=== PATIENT | male | born 1965 | race Caucasian/White ===

== ENCOUNTER 2022-04-17 19:37 | Emergency (ER) | payer OTHER, SELFPAY ==
[2022-04-17 19:38] VITALS: BP 150/83; PULSE 88; RESP 16; TEMP 36.3; O2SAT 96; BMI 24.7
[2022-04-17 19:58] LABS: Mucous, Urine 0 SEEN /hpf (<or=2+); Squamous Epithelial Cells - UA 0 SEEN /hpf (0-5); White Blood Cells 0 SEEN /hpf (0-5)
[2022-04-17 20:00] LABS: Absolute Lymphocyte Count 0.97 X10^3/uL (0.83-4.51); Absolute Neutrophil Count 3.5 X10^3/uL (2.0-7.7); Basophil# 0.02 X10^3/uL; Basophil% 0.4 % (0-1); Eosinophil# 0.16 X10^3/uL; Eosinophils% 3.2 % (0-5); Hematocrit 40.9 % (40-54); Hemoglobin 13.5 g/dL (13.0-16.5); Lymphocyte # 0.97 X10^3/ul (0.83-4.51); Lymphocyte % 19.2 % (19-41); Mean Corpuscular Hgb 30.9 pg (27.0-32.0); Mean Corpuscular Volume 93.6 fL (80-94); Mean Platelet Vol. 9.5 fl (6.2-12.0); Monocyte# 0.41 X10^3/uL; Monocyte% 8.1 % (0-10); NRBC Flagged by Analyzer 0 % (0-5); Neutrophil # 3.48 X10^3/uL (2.7-7.7); Neutrophil % 68.9 % (47-70); Platelet Count 227 K/mm3 (150-450); RBC Distribution Width CV 13.1 % (11.6-14.6); RBC Distribution Width SD 44.6 fl (35.1-43.9); Red Blood Count 4.37 M/mm3 (4.6-6.2); White Blood Count 5.1 K/mm3 (4.4-11.0)
[2022-04-17 20:11] LABS: Anion Gap 5 (5-15); BUN 25 mg/dL (7-18); BUN/Creat Ratio 22.1 RATIO (10-20); Calcium,Total 8.8 mg/dL (8.5-10.1); Chloride 108 mmol/L (98-107); Creatinine, Serum 1.13 mg/dL (0.70-1.30); EST Glomerular Filtration Rate 71 mL/min (>60); Est Glom Filt Rate - Afr Amer 85 mL/min (>60); Estimated Creatinine Clearance 72.68 ml/min; Glucose 160 mg/dL (74-106); Sodium Level 141 mmol/L (136-145)
[2022-04-17 20:17] LABS: Color, Urine Yellow (Yellow); Glucose, Dipstick Normal (Normal); Ketone-Dipstick 5 mg/dl (Negative); Leukocyte Esterase-Dipstick Negative /ul (Negative); Nitrite-Dipstick Negative (Negative); Occult Blood-Urine Negative /ul (Negative); Protein-Dipstick 30 mg/dl (Negative); Urine Bilirubin Dipstick Negative (Negative); Urine Clarity Clear (Clear); Urine Urobilinogen 1 mg/dl (Normal)
[2022-04-17 20:34] LABS: Bacteria RARE /hpf (None Seen); Red Blood Cells-Urine 0-5 SEEN /hpf (0-5)
--- NOTE | 2022-04-17 22:19 | ED.VIS.GI ---
HPI HPI - GI History of Present Illness Chief Complaint: Abd Pain Narrative Narrative: 57-year-old male presenting with abdominal pain. He states it was intermittent about 2 weeks ago and this week it has been more constant. He describes it as the bilateral lower quadrants. He states he is not having nausea or vomiting. He is making normal urine and stool. No fevers or chills. He states he thinks he has a history of a twisted bowel. He had surgery by Dr. Billings who told him it was not twisted. He states ever since that time he has had a defect in the left lower abdominal wall. 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 PFSH PFSH Medical History no medical history Home Medications apixaban 5 mg tablet (Eliquis) 5 mg PO BID 04/17/22 [History Last Taken Unknown] escitalopram oxalate 10 mg tablet 10 mg PO DAILY 04/17/22 [History Last Taken Unknown] lisinopril 10 mg tablet 10 mg PO DAILY 04/17/22 [History Last Taken Unknown] mirtazapine 30 mg tablet 30 mg PO DAILY 04/17/22 [History Last Taken Unknown] pantoprazole 40 mg tablet,delayed release 40 mg PO DAILY 04/17/22 [History Last Taken Unknown] Allergy/AdvReac Type Severity Reaction Status Date / Time No Known Allergies Allergy Verified 04/17/22 19:39 Family History no significant family his Surgical History no surgical history Social History Smoking Status: Never smoker [facility] ED Constitutional Constitutional ED: Denies chills or fever(s) ENT ENT ED: Denies rhinorrhea Cardiovascular Cardiovascular: Denies chest pain or palpitations Respiratory/Chest Respiratory/Chest: Denies cough or dyspnea Gastrointestinal Gastrointestinal: Reports abdominal pain; Denies constipation, diarrhea, melena, nausea or vomiting Genitourinary Genitourinary ED: Denies dysuria Musculoskeletal Musculoskeletal: Denies arthralgias or back pain Integumentary Denies abscess Neurologic Neurologic: Denies headache(s) or paresthesias Psychiatric Psychiatric: Denies anxiety or depression EXAM Physical Exam Const Vital Signs: 04/17/22 19:38 Temperature 97.4 F L Temperature Source Temporal Pulse Rate 88 Respiratory Rate 16 Blood Pressure 150/83 H Blood Pressure Mean 105 Pulse Ox 96 Oxygen Delivery Method Room Air Positive well nourished General Appearance ED: NAD; Negative for pallor HEENT Reports TM's clear and moist mucous membranes Tympanic Membrane ED: Yes TM's clear Eyes PERRL and EOMs intact bilaterally Resp normal respiratory effort and clear to auscultation bilaterally Cardio regular rate and regular rhythm GI Palpation: tender periumbilical Back/Spine no CVA tenderness Neuro CN's II-XII intact bilaterally Sensorium / Orientation: alert, oriented to person, oriented to place and oriented to time Psych mental status grossly normal Skin no wounds General Skin Exam: Negative for jaundice or pallor MDM MDM MDM Narrative Medical decision making narrative: Patient presenting with lower abdominal pain bilaterally. He states he is having bowel movements. He is not having diarrhea. No fever or chills. No nausea or vomiting. He states the pain was initially intermittent and then the last week its been more constant. Patient denies black or bloody stools. Patient declines analgesia in the ER. Blood work is obtained and his CBC shows a normal white blood cell count 5.1. Hemoglobin hematocrit are stable. Platelets are normal. Renal function electrolytes are normal. Urinalysis negative for infection. Patient does have some tenderness around the periumbilical region and I did obtain a CT of the abdomen pelvis. This is negative for acute findings other than consistent with gastroenteritis. Patient denies any nausea, vomiting, diarrhea. Impression: 1. Abdominal pain Lab Data Attestation: I reviewed the patient's lab results. Labs: Laboratory Results - last 24 hr 04/17/22 04/17/22 04/17/22 19:45 19:45 19:50 WBC 5.1 RBC 4.37 L Hgb 13.5 Hct 40.9 MCV 93.6 MCH 30.9 MCHC 33.0 RDW Std Deviation 44.6 H RDW Coeff of Markel 13.1 Plt Count 227 MPV 9.5 Immature Gran % (Auto) 0.200 Neut % (Auto) 68.9 Lymph % (Auto) 19.2 [place] % (Auto) 8.1 Eos % (Auto) 3.2 Baso % (Auto) 0.4 Absolute Neuts (auto) 3.5 Absolute Lymphs (auto) 0.97 Nucleated RBC % 0 Sodium 141 Potassium 4.0 Chloride 108 H Carbon Dioxide 28.0 Anion Gap 5 BUN 25 H Creatinine 1.13 Estim Creat Clear Calc 72.68 Est GFR (MDRD) Af Amer 85 Est GFR (MDRD) Non-Af 71 BUN/Creatinine Ratio 22.1 H Glucose 160 H Calcium 8.8 Urine Color Yellow Urine Clarity Clear Urine pH 6.0 Ur Specific [place] 1.020 Urine Protein 30 H Urine Glucose (UA) Normal Urine Ketones 5 H Urine Occult Blood Negative Urine Nitrite Negative Urine Bilirubin Negative Urine Urobilinogen 1 H Ur Leukocyte Esterase Negative Urine RBC 0-5 SEEN Urine WBC 0 SEEN Ur Squamous Epith Cells 0 SEEN Urine Bacteria RARE Urine Mucus 0 SEEN Radiography Diagnostic Testing: Clinical Impression(s) from Imaging Studies Abdomen/Pelvis CT 04/17/22 22:34 IMPRESSION: 1. Fluid within nondistended loops of small bowel and within stomach without bowel wall thickening or surrounding inflammation can be normal or can be seen with gastroenteritis in the right clinical setting. 2. Multiple ill-defined small hypodensities involving the posterior segment of the right lobe of liver. These are nonspecific/indeterminate and some of which were not seen on the prior study. These can be further investigated with liver MRI, nonemergent. Electronically Signed: Sanya Sanders MD at 23:49 EDT , Discharge Plan Triage Chief Complaint: Abd Pain ED Provider: Quinn Bolton Dx/Rx/DC Orders Instructions: ED Gastroenteritis, Noninfectious Prescriptions: No Action pantoprazole 40 mg tablet,delayed release (DR/EC) 40 mg PO DAILY Label Comments: TAKE 1 TABLET BY MOUTH ONCE DAILY IN THE MORNING mirtazapine 30 mg tablet 30 mg PO DAILY Label Comments: TAKE 1 TABLET BY MOUTH EVERY DAY AT BEDTIME lisinopril 10 mg tablet 10 mg PO DAILY Label Comments: TAKE 1 TABLET BY MOUTH ONCE DAILY escitalopram oxalate 10 mg tablet 10 mg PO DAILY Label Comments: TAKE 1 TABLET BY MOUTH ONCE DAILY Eliquis 5 mg tablet 5 mg PO BID Label Comments: TAKE 1 TABLET BY MOUTH TWICE DAILY Primary Care Provider: Michael Alford Referrals: Michael Alford, [Primary Care Provider] - Disposition Disposition: Home, Self Care
--- NOTE | 2022-04-17 22:34 | CT_ITS ---
EXAM: CT ABDOMEN AND PELVIS WITH INTRAVENOUS CONTRAST CLINICAL INDICATION: abdominal pain TECHNIQUE: Helically acquired images were obtained of the abdomen and pelvis with intravenous contrast. CTDIvol = ( 12.44 ) mGy, DLP = ( 613.45 ) mGycm This CT exam was performed using one or more of the following dose reduction techniques: automated exposure control, adjustment of the mA and/or kV according to patient size, and/or use of iterative reconstruction technique. This report was created using [employer] report generation technology. CONTRAST: IV 100mL Isovue-370 COMPARISON: 07/03/2021 CT FINDINGS: LOWER THORAX: Unremarkable. Lung bases are clear. No cardiomegaly. No significant pericardial effusion. ABDOMEN: LIVER: Multiple ill-defined small hypodensities involving the posterior segment of the right lobe of liver. These are nonspecific/indeterminate and can be further investigated with liver MRI. GALLBLADDER AND BILE DUCTS: Contracted gallbladder. No calcified gallstones. No gallbladder distention or wall edema. No intra- or extrahepatic biliary ductal dilation. PANCREAS: Unremarkable. No focal cystic or solid mass. SPLEEN: Unremarkable. Normal size without focal cystic or solid mass. ADRENALS: Unremarkable. No nodules. KIDNEYS AND URETERS: Unremarkable. Normal renal size and position. No hydronephrosis. STOMACH AND BOWEL: Fluid within nondistended loops of small bowel and within stomach without bowel wall thickening or surrounding inflammation can be normal or can be seen with gastroenteritis in the right clinical setting. No colitis, diverticulitis or bowel obstruction. PELVIS: APPENDIX: No appendicitis. BLADDER: Unremarkable. REPRODUCTIVE: Unremarkable as visualized. No mass. ABDOMEN and PELVIS: INTRAPERITONEAL SPACE: Unremarkable. No ascites or other fluid collection. No free air. BONES/JOINTS: No suspicious lytic or sclerotic lesions of bone. SOFT TISSUES: Unremarkable. No discrete abdominal or pelvic wall hernia. VASCULATURE: Unremarkable. Abdominal aorta is non-dilated. LYMPH NODES: Unremarkable. No enlarged lymph nodes. CT/Abdomen/Pelvis W IV Cont ONLY IMPRESSION: 1. Fluid within nondistended loops of small bowel and within stomach without bowel wall thickening or surrounding inflammation can be normal or can be seen with gastroenteritis in the right clinical setting. 2. Multiple ill-defined small hypodensities involving the posterior segment of the right lobe of liver. These are nonspecific/indeterminate and some of which were not seen on the prior study. These can be further investigated with liver MRI, nonemergent. Electronically Signed: Sanya Sanders MD at 23:49 EDT ,
[2022-04-18 00:10] VITALS: BP 145/80; PULSE 76; RESP 16; O2SAT 98
[2022-04-18] MEDS: Acetaminophen 325 MG Tablet 650 MG PO (00:14)
== END 2022-04-18 00:16 | disposition home or self-care (01) ==
PROVIDERS: Emergency Medicine; Emergency Provider Student in an Organized Health Care Education/Training Program; PCP Family Medicine; Visit Provider Student in an Organized Health Care Education/Training Program
DX: R10.32 Left lower quadrant pain (principal); R10.31 Right lower quadrant pain
CPT/HCPCS: 74177; 80048; 81001; 85025; 99284; Q9967; A4216

== ENCOUNTER → 2022-08-08 | Outpatient (CLI) | payer OTHER, SELFPAY ==
--- NOTE | 2022-08-08 11:29 | NM_ITS ---
CLINICAL: 57-year-old male with history of dysphagia. SEMI-SOLID PHASE 99m Tc SULFUR COLLOID GASTRIC EMPTYING STUDY COMPARISON: None available FINDINGS: The patient was administered 1.1 mCi of 99m Tc sulfur colloid mixed with oatmeal and consumed per os. Image acquisitions in the anterior-posterior projections were obtained for 60 minutes. There is prompt visualization of the stomach. There is no gastroesophageal reflux identified. The T ? emptying was calculated to be 28.14 minutes, (Normal: 12-56 minutes). NM/Gastric Emptying Study IMPRESSION: 1. NORMAL 99m Tc sulfur colloid semi-solid phase (oatmeal) gastric emptying imaging examination. A. There is normal and preserved semi-solid phase gastric emptying compared to normal controls. (Ish et al, J Nucl Med Tech 38: 186, 2010). Electronically Signed: Lalit Quiles, at 22:53 EST ,
== END | disposition home or self-care (01) ==
LOC: NM 11:27
PROVIDERS: PCP Family Medicine; Referring Provider Internal Medicine Gastroenterology; Visit Provider Internal Medicine Gastroenterology
DX: R13.10 Dysphagia, unspecified (principal); R14.0 Abdominal distension (gaseous); R10.9 Unspecified abdominal pain; K59.00 Constipation, unspecified
CPT/HCPCS: 78264; A9541

== ENCOUNTER → 2022-08-15 | Outpatient (CLI) | payer SELFPAY, OTHER ==
--- NOTE | 2022-08-15 07:59 | MRI_ITS ---
STUDY: MR MRCP WITHOUT CONTRAST REASON FOR EXAM: Male, 57 years old. dilated pancreatic duct and abdominal pain TECHNIQUE: Standard MRCP technique was utilized. 3-D reconstructions were performed. COMPARISON: None. FINDINGS: Gall Bladder: Contracted. Cystic duct: Normal with no demonstrated fixed filling defect. Intrahepatic ducts: Normal visualized intrahepatic ducts with no demonstrated fixed filling defect, dilation or stricture. Common hepatic duct: Normal with no demonstrated fixed filling defect, dilation or stricture. Common bile duct: Normal with no demonstrated fixed filling defect, dilation or stricture. Pancreatic duct: Normal with no demonstrated fixed filling defect, dilation or stricture. MRI/MRCP Abdomen without Contrast IMPRESSION: Normal MR Cholangiopancreatography (MRCP). Electronically Signed: Lalit Suarez MD at 12:50 EST ,
== END | disposition home or self-care (01) ==
LOC: MRI 07:59
PROVIDERS: PCP Family Medicine; Referring Provider Internal Medicine Gastroenterology; Visit Provider Internal Medicine Gastroenterology
DX: R10.9 Unspecified abdominal pain (principal)
CPT/HCPCS: 74181

== ENCOUNTER 2022-09-13 09:37 | Day surgery (SDC) | payer SELFPAY, OTHER ==
[2022-09-13] MEDS: Lactated Ringers 1,000 ML 15 ML IV (10:31)
[2022-09-13 10:32] VITALS: BP 119/78; PULSE 65; RESP 18; TEMP 37.2; O2SAT 96; BMI 23.9
--- NOTE | 2022-09-13 10:49 | PCM.HP.BLA ---
History and Physical Date of Admission: 09/13/22 ALF EDWARD, is a 57 M who presents to the office today for Initial consult. Alf established with this clinic 07.19.22 with referral from PCP. Constipation is the primary issue for many years. He is dependent on medication to promote BM. Aloe vera and Colace 1 capsule are taken PRN and these are then helpful for approximately three days, but continues to have incomplete BM and loose stools. With this he will also have bloating and upper/lower abdominal pain. In 2011 he experienced severe abdominal pain, presented to [facility] ED where radiology noted a twisted colon; colonoscopy performed and bowel perforated. The next day he had surgery where Alf reports a significant amount of fluid was removed. Then discharged with colostomy from - when this was reversed. Exam Const General: cooperative and comfortable Nutritional Appearance: average body habitus and well nourished HENMT Head: normal to inspection Ears: hearing grossly normal bilaterally Nose: external nose normal Face and sinus: normal facial exam Mouth: oral mucosae normal Throat: posterior oropharynx normal Eyes General: appearance normal, both eyes and all related structures Neck Neck: normal visual inspection Chest Chest palpation & inspection: normal inspection of the chest and normal palpation of entire chest wall Resp Effort & Inspection: normal respiratory effort Auscultation: Bilateral: Clear to Auscultation Cardio Palpation: normal PMI Rate: regular rate Rhythm: regular rhythm GI Inspection: normal to inspection Auscultation: normal bowel sounds Percussion: normal to percussion Palpation: no hepatosplenomegaly Skin General: no rashes or lesions noted Neuro General: patient alert Extrem General: normal to inspection Psych Affect: normal affect Quality Reporting Tobacco Screening ([facility] 138) Smoking Status: Never smoker Assessment and Plan Assessment and Plan (1) Constipation: ?Status:?Chronic ?Plan: New onset constipation in the setting of a sigmoid perforation status post sigmoid reversal suspected primary anastomosis.? The differential diagnosis does include sigmoid stricture, sigmoid colitis associated with diverticulosis.? He should undergo colonoscopy to evaluate. (2) Abdominal pain: ?Status:?Acute ?Plan: Intermittent abdominal pain in the setting of a hiatal hernia and a dilated pancreatic duct seen on CT scan.? Different diagnosis does include pancreatic insufficiency, ampullary lesion obstructing the pancreatic duct.? I do not suspect he has any stone disease.? Also in the differential diagnosis would be gastroparesis, gastritis or duodenitis secondary to age pylori.? She is undergoing upper endoscopy to evaluate (3) Bloating: ?Status:?Acute ?Plan: Positive bloating postprandial which could be associated with bowel acid reflux into the stomach, tightening pyloric sphincter for gastroparesis.? We will get a gastric emptying study to evaluate his upper GI tract for digestion (4) Dysphagia: ?Status:?Acute ?Plan: Intermittent esophageal dysphagia status post G-tube placement with irritation hypopharynx at the level of the cricopharyngeus status post endoscopy.? He is on PPI therapy.? Patient for eosinophilic esophagitis, esophageal stricture, esophageal diverticulum or PPI nonresponsive reflux disease. I have examined the patient and the H&P has been reviewed. There are no clinical changes since date of exam.
--- NOTE | 2022-09-13 11:00 | COLBX_PTH ---
PATIENT: ALF EDWARD JUNIOR LOC: EN U#:[id number] AGE/SX: 57/M ROOM: RE09/13/[address]: Dr. Chavez Barrett DO : 1965 BED: DIS: 09/13/2022 SPEC #: [id number] RECD: 09/13/22 12:42 STATUS: GERA AGUSTIN #: [id number] NATALIE: 09/13/22 11:[address]: Chavez Barrett DEPT: SURGICAL PATHOLOGY RECD BY: Eduin Pedersen ENTERED: 09/13/22 13:29 SP TYPE: COLON BX OTHR DR: Dr. Michael Alford DO Tissues: A - Duodenum, NOS B - Esophagus, NOS C - COLON BIOPSY Procedures: Special Stain Group II Surgery Specimen Level IV Alcian Blue/PAS (control) HEADER OPERATION: Colonoscopy, EGD ([facility]) with biopsies PRE-OP DIAGNOSIS: Constipation, abdominal pain, bloating, dysphagia TISSUE SUBMITTED: A ? Duodenum biopsy, B ? Distal esophagus biopsy, C ? Random colon biopsies MICROSCOPIC DIAGNOSIS A. Duodenum, biopsy: No pathologic change. B. Distal esophagus, biopsy: Fragments of gastric mucosa with chronic inflammation. No evidence of goblet cell metaplasia. See comment. C. Colon, random biopsy: Melanosis coli. AM:amaury 09/14/2022 COMMENT B. Alcian blue/PAS stain with matched control supports the above diagnosis. MICROSCOPIC DESCRIPTION Slides are reviewed. GROSS DESCRIPTION A - Received in fixative is one container labeled with the patient's name and designated duodenum biopsy. The specimen consists of multiple irregular fragments of light armijo soft tissue that in aggregate measure 0.6 x 0.3 x 0.1 cm. The specimen is totally submitted in one cassette. B - Received in fixative is one container labeled with the patient's name and designated distal esophagus biopsy. The specimen consists of two irregular fragments of light armijo soft tissue that in aggregate measure 0.6 x 0.3 x 0.1 cm. The specimen is totally submitted in one cassette. C - Received in fixative is one container labeled with the patient's name and designated random colon biopsy. The specimen consists of multiple irregular fragments of light armijo soft tissue that in aggregate measure 1 x 0.3 x 0.1 cm. The specimen is totally submitted in one cassette. / ALEX:amaury 09/13/2022 TC:3 CPT: 25189 x3, 38435
[2022-09-13 12:08] VITALS: BP 119/78; BP 90/68; PULSE 70; RESP 18; TEMP 36.4; O2SAT 98
--- NOTE | 2022-09-13 12:08 | OP.EGD_ITS ---
Patient Name: Jonatan Barr Procedure Date: 09/13/2022 10:47 AM Date of : 1965 Age: 57 Procedure: Upper GI endoscopy Indications: Epigastric abdominal pain, Functional Dyspepsia Providers: Chavez Barrett DO Medicines: Monitored Anesthesia Care Patient Profile: This is a 57 year old male. Refer to note in patient chart for documentation of history and physical. Patient has symptoms of chronic global abdominal pain. Complications: No immediate complications. Procedure: Pre-Anesthesia Assessment: - Prior to the procedure, a History and Physical was performed, and patient medications and allergies were reviewed. The risks and benefits of the procedure and the sedation options and risks were discussed with the patient. All questions were answered and informed consent was obtained. Patient identification and proposed procedure were verified by the physician. Mental Status Examination: normal. Prophylactic Antibiotics: The patient does not require prophylactic antibiotics. Prior Anticoagulants: The patient has taken no previous anticoagulant or antiplatelet agents. ASA Grade Assessment: II - A patient with mild systemic disease. After reviewing the risks and benefits, the patient was deemed in satisfactory condition to undergo the procedure. The anesthesia plan was to use monitored anesthesia care (MAC). Immediately prior to administration of medications, the patient was re-assessed for adequacy to receive sedatives. The heart rate, respiratory rate, oxygen saturations, blood pressure, adequacy of pulmonary ventilation, and response to care were monitored throughout the procedure. The physical status of the patient was re-assessed after the procedure. After obtaining informed consent, the endoscope was passed under direct vision. Throughout the procedure, the patient's blood pressure, pulse, and oxygen saturations were monitored continuously. The pediatric colonoscope was introduced through the mouth, and advanced to the second part of duodenum. The upper GI endoscopy was accomplished without difficulty. The patient tolerated the procedure well. Scope In: 11:44:49 AM Scope Out: 11:48:34 AM Total Procedure Duration Time 0 hours 3 minutes 45 seconds Findings: The Z-line was irregular and was found 37 cm from the incisors. Biopsies were taken with a cold forceps for histology. Verification of patient identification for the specimen was done. Estimated blood loss was minimal. The exam of the esophagus was otherwise normal. A small hiatal hernia was present. No other significant abnormalities were identified in a careful examination of the stomach. Few non-bleeding superficial duodenal ulcers with no stigmata of bleeding were found in the duodenal bulb. The largest lesion was 6 mm in largest dimension. Biopsies were taken with a cold forceps for histology. Verification of patient identification for the specimen was done. Estimated blood loss was minimal. Impression: - Z-line irregular, 37 cm from the incisors. Biopsied. - Small hiatal hernia. - Multiple non-bleeding duodenal ulcers with no stigmata of bleeding. Biopsied. Recommendation: - Discharge patient to home. - Resume previous diet. - Continue present medications. - Await pathology results. - Repeat upper endoscopy in 6 months for surveillance based on pathology results. Procedure Code(s): --- Professional --- 59479, Esophagogastroduodenoscopy, flexible, transoral; with biopsy, single or multiple CPT copyright 2017 [employer]. All rights reserved. The codes documented in this report are preliminary and upon cuff matcher review may be revised to meet current compliance requirements. Chavez Barrett DO 09/13/2022 12:07:35 PM This report has been signed electronically. Number of Addenda: 0 Note Initiated On: 09/13/2022 10:47 AM
--- NOTE | 2022-09-13 12:08 | OP.CCLET_ITS ---
09/13/2022 Michael Alford Re : Upper GI endoscopy procedure for Jonatan Barr [place] This procedure was performed on Tuesday, September 13, 2022. My impressions and recommendations are as follows: Impressions : - Z-line irregular, 37 cm from the incisors. Biopsied. - Small hiatal hernia. - Multiple non-bleeding duodenal ulcers with no stigmata of bleeding. Biopsied. Recommendations : - Discharge patient to home. - Resume previous diet. - Continue present medications. - Await pathology results. - Repeat upper endoscopy in 6 months for surveillance based on pathology results. My findings are described in the full procedure note, which is enclosed. If I can be of further assistance, please feel free to contact me at . Sincerely, Chavez Friend, 09/13/2022 12:07:35 PM This report has been signed electronically.
[2022-09-13 12:10] VITALS: BP 119/78; BP 90/63; PULSE 72; RESP 18; O2SAT 96
--- NOTE | 2022-09-13 12:12 | OP.CCLET_ITS ---
09/13/2022 Michael Alford Re : Colonoscopy procedure for Jonatan Barr [place] This procedure was performed on Tuesday, September 13, 2022. My impressions and recommendations are as follows: Impressions : - Melanosis in the colon. Biopsied. - Patent end-to-end colo-colonic anastomosis. - The examined portion of the ileum was normal. Recommendations : - Discharge patient to home. - Resume previous diet. - Continue present medications. - Await pathology results. - Repeat colonoscopy in 5 years for surveillance. My findings are described in the full procedure note, which is enclosed. If I can be of further assistance, please feel free to contact me at . Sincerely, Chavez Barrett, 09/13/2022 12:11:43 PM This report has been signed electronically.
--- NOTE | 2022-09-13 12:12 | OP.COLON_ITS ---
Patient Name: Jonatan Barr Procedure Date: 09/13/2022 11:48 AM Date of : 1965 Age: 57 Procedure: Colonoscopy Indications: Abdominal pain, Follow-up of colonic perforation Providers: Chavez Barrett DO Medicines: Monitored Anesthesia Care Patient Profile: This is a 57 year old male. Refer to note in patient chart for documentation of history and physical. Patient has symptoms of chronic global abdominal pain. Last Colonoscopy: 10 years ago. Complications: No immediate complications. Procedure: Pre-Anesthesia Assessment: - Prior to the procedure, a History and Physical was performed, and patient medications and allergies were reviewed. The risks and benefits of the procedure and the sedation options and risks were discussed with the patient. All questions were answered and informed consent was obtained. Patient identification and proposed procedure were verified by the physician. Mental Status Examination: normal. Prophylactic Antibiotics: The patient does not require prophylactic antibiotics. Prior Anticoagulants: The patient has taken no previous anticoagulant or antiplatelet agents. ASA Grade Assessment: II - A patient with mild systemic disease. After reviewing the risks and benefits, the patient was deemed in satisfactory condition to undergo the procedure. The anesthesia plan was to use monitored anesthesia care (MAC). Immediately prior to administration of medications, the patient was re-assessed for adequacy to receive sedatives. The heart rate, respiratory rate, oxygen saturations, blood pressure, adequacy of pulmonary ventilation, and response to care were monitored throughout the procedure. The physical status of the patient was re-assessed after the procedure. After I obtained informed consent, the scope was passed under direct vision. Throughout the procedure, the patient's blood pressure, pulse, and oxygen saturations were monitored continuously. The pediatric colonoscope was introduced through the anus and advanced to the terminal ileum. The colonoscopy was performed without difficulty. The patient tolerated the procedure well. The quality of the bowel preparation was good. Scope In: 11:51:05 AM Scope Out: 12:02:08 PM Total Procedure Duration Time 0 hours 11 minutes 3 seconds Findings: The perianal and digital rectal examinations were normal. A diffuse area of severe melanosis was found in the entire colon. Biopsies were taken with a cold forceps for histology. Verification of patient identification for the specimen was done. Estimated blood loss was minimal. There was evidence of a prior end-to-end colo-colonic anastomosis in the sigmoid colon. This was patent. The terminal ileum appeared normal. Impression: - Melanosis in the colon. Biopsied. - Patent end-to-end colo-colonic anastomosis. - The examined portion of the ileum was normal. Recommendation: - Discharge patient to home. - Resume previous diet. - Continue present medications. - Await pathology results. - Repeat colonoscopy in 5 years for surveillance. Procedure Code(s): --- Professional --- 32351, Colonoscopy, flexible; with biopsy, single or multiple CPT copyright 2017 [employer]. All rights reserved. The codes documented in this report are preliminary and upon radio adjuster review may be revised to meet current compliance requirements. Chavez Barrett DO 09/13/2022 12:11:43 PM This report has been signed electronically. Number of Addenda: 0 Note Initiated On: 09/13/2022 11:48 AM
[2022-09-13 12:15] VITALS: BP 119/78; BP 98/76; PULSE 70; RESP 18; O2SAT 96
[2022-09-13 12:26] VITALS: BP 116/80; BP 119/78; PULSE 64; RESP 18; TEMP 36.5; O2SAT 96
[2022-09-13 13:03] VITALS: BP 119/78
== END 2022-09-13 13:11 | disposition home or self-care (01) ==
LOC: EN 09:38 → AC 09:40
PROVIDERS: PCP Family Medicine; Referring Provider Family Medicine; Visit Provider Internal Medicine Gastroenterology
PROC: 0DJD8ZZ Inspection of Lower Intestinal Tract, Via Natural or Artificial Opening Endoscopic (ICD-10-PCS; CPT 45378; principal; 2022-09-13 10:55)
DX: K44.9 Diaphragmatic hernia without obstruction or gangrene (principal); K26.9 Duodenal ulcer, unspecified as acute or chronic, without hemorrhage or perforation; K63.89 Other specified diseases of intestine; I10 Essential (primary) hypertension; Z79.899 Other long term (current) drug therapy
CPT/HCPCS: 43239; 45380; 88305; 88313; J7120; J2405

== ENCOUNTER 2022-12-24 06:16 | Emergency (ER) | payer OTHER, SELFPAY ==
[2022-12-24 06:17] VITALS: BP 138/92; PULSE 84; RESP 16; TEMP 36.2; O2SAT 97; BMI 25.2
--- NOTE | 2022-12-24 07:22 | EX.ED.DYSGE1 ---
HPI History of Present Illness Chief Complaint: Allergic Reaction Informant: patient Narrative Narrative: Patient is a 57-year-old presenting with lip swelling. Patient states that started noon yesterday. He took Benadryl last night with no improvement. [place] that his face was little bit more swollen today so he came to the emergency room. Patient states he had 3 doses of Augmentin. He states it was prescribed to him because he is been having some chest congestion. He states he recently had a chest x-ray which was negative. He notes he is also on lisinopril and Lexapro. His last dose of lisinopril was yesterday morning. He has not had his Lexapro for couple days. Patient denies any hives, difficulty breathing, swelling of his throat or tongue or GI symptoms. Never had a reaction like this before. No other complaints at this time. [facility] Medical History Hypertension Home Medications escitalopram oxalate 10 mg tablet 10 mg PO DAILY 04/17/22 [History Last Taken 09/12/22] lisinopril 10 mg tablet 10 mg PO DAILY 04/17/22 [History Last Taken 09/12/22] pantoprazole 40 mg tablet,delayed release 40 mg PO DAILY 04/17/22 [History Last Taken 09/12/22] amoxicillin 500 mg tablet 500 mg PO BID #10 tabs 10/03/22 [Rx Last Taken Unknown] amoxicillin 875 mg-potassium clavulanate 125 mg tablet 1 tab PO Q12H #14 tabs 12/20/22 [Rx Last Taken Unknown] guaifenesin 600 mg tablet, extended release 12 hr 600 mg PO BID PRN congestion #14 tabs 12/20/22 [Rx Last Taken Unknown] amlodipine 5 mg tablet (Norvasc) 5 mg PO DAILY #30 tabs 12/24/22 [Rx Last Taken Unknown] doxycycline hyclate 100 mg capsule 100 mg PO BID #14 caps 12/24/22 [Rx Last Taken Unknown] prednisone 20 mg tablet 40 mg PO DAILY #8 tabs 12/24/22 [Rx Last Taken Unknown] Allergy/AdvReac Type Severity Reaction Status Date / Time amoxicillin [From Augmentin] Allergy Swelling Verified 12/24/22 06:22 clavulanic acid Allergy Swelling Verified 12/24/22 06:22 [From Augmentin] Surgical History H/O hernia repair Social History Smoking Status: Never smoker ROS ROS ED Constitutional Constitutional ED: Denies chills or fever(s) Eyes Eyes: Denies change in vision ENT ENT ED: Reports other Details: Upper lip swelling ; Denies rhinorrhea or sore throat Cardiovascular Cardiovascular: Denies chest pain Respiratory/Chest Respiratory/Chest: Reports cough; Denies dyspnea Gastrointestinal Gastrointestinal: Denies abdominal pain, diarrhea, nausea or vomiting Musculoskeletal Musculoskeletal: Denies arthralgias or myalgias Integumentary Denies rash Neurologic Neurologic: Denies headache(s) EXAM Physical Exam Const Vital Signs: 12/24/22 06:17 12/24/22 07:42 Temperature 97.2 F L Temperature Source Temporal Pulse Rate 84 71 Respiratory Rate 16 14 Blood Pressure 138/92 H 132/71 H Blood Pressure Mean 107 Pulse Ox 97 97 Oxygen Delivery Method Room Air Positive well nourished and well developed General Appearance ED: well developed and NAD HEENT Reports moist mucous membranes HEENT Narrative: Edema of the upper lip. Normal oropharynx. No edema of the tongue appreciated. Normal phonation. Eyes PERRL and EOMs intact bilaterally Eyes Narrative: No periorbital edema present Neck supple Neck Narrative: No stridor Chest Wall inspection of chest normal and palpation of chest normal Resp normal respiratory effort Resp Narrative: Scattered expiratory wheeze present Cardio regular rate, regular rhythm and no murmurs GI normal to inspection, nondistended, normoactive bowel sounds and non-tender Extremity normal to inspection General Extremety ED: Negative for edema General Extremity: Negative for edema Neuro oriented x3 Sensorium / Orientation: alert Motor Exam: Negative for general weakness Psych mental status grossly normal Skin no rashes or lesions noted Skin Narrative: No urticaria present MDM MDM MDM Narrative Medical decision making narrative: Patient is evaluated for upper lip swelling. Suspect this is angioedema and not anaphylaxis. Its been stable since noon yesterday so do not think he requires extended observation. There is no involvement of the mouth, buccal surfaces or oropharynx. He has no respiratory distress. It is possible that this could be allergic reaction to the antibiotics however I think this is less likely especially given lack of other symptoms such as hives, itching and the steady state of it over the past 16 hours or so. Just to be safe he has put on some prednisone and given Benadryl in the ER as well. Patient is counseled that I do suspect this is angioedema and he can never take an RUTH ANN inhibitor like lisinopril again. He is switched to Norvasc. He is given a prescription for prednisone. He is counseled return precautions. He does have a subtle wheeze which I think is related to his chest congestion and not actually from an allergic reaction. Patient states he has inhaler at home and is encouraged to use it. And a description for doxycycline since I am stopping the Augmentin. His chest x-ray from 12/10/[facility] was reviewed and did not show any infiltrate. He feels that those symptoms are improving. I do not know if he really needs antibiotics and is counseled if his respiratory symptoms are improving he can not fill the prescription. Patient and verbalized agreement understand this plan. Discharged home in stable condition. Discharge Plan Triage Chief Complaint: Allergic Reaction ED Provider: Ariella Ochoa Dx/Rx/DC Orders Clinical Impression: Angioedema, Swelling of upper lip Instructions: ED Angioedema Prescriptions: New prednisone 20 mg tablet 40 mg PO DAILY Qty: 8 0RF amlodipine [Norvasc] 5 mg tablet 5 mg PO DAILY Qty: 30 0RF doxycycline hyclate 100 mg capsule 100 mg PO BID Qty: 14 0RF No Action amoxicillin 500 mg tablet 500 mg PO BID Qty: 10 0RF amoxicillin-pot clavulanate 875-125 mg tablet 1 tab PO Q12H Qty: 14 0RF guaifenesin 600 mg tablet extended release 12hr 600 mg PO BID PRN (Reason: congestion) Qty: 14 0RF pantoprazole 40 mg tablet,delayed release (DR/EC) 40 mg PO DAILY Label Comments: TAKE 1 TABLET BY MOUTH ONCE DAILY IN THE MORNING lisinopril 10 mg tablet 10 mg PO DAILY Label Comments: TAKE 1 TABLET BY MOUTH ONCE DAILY escitalopram oxalate 10 mg tablet 10 mg PO DAILY Label Comments: TAKE 1 TABLET BY MOUTH ONCE DAILY Primary Care Provider: Michael Alford Referrals: Michael Alford, [Primary Care Provider] - Activity Restrictions/Additional Instructions: I suspect allergic reaction or having a something called angioedema. It is caused by lisinopril. Less likely this is a reaction to Augmentin. Just to be on the safe side we will stop the antibiotics and put you on steroids. We will switch her blood pressure medicine to Norvasc. Disposition Disposition: Home, Self Care Discharge Date/Time: 12/24/22 07:43
[2022-12-24] MEDS: DiphenhydrAMINE 25 MG Capsule 50 MG PO (07:39)
[2022-12-24] MEDS: predniSONE 20 MG Tablet 40 MG PO (07:39)
[2022-12-24 07:42] VITALS: BP 132/71; PULSE 71; RESP 14; O2SAT 97
== END 2022-12-24 07:43 | disposition home or self-care (01) ==
PROVIDERS: Emergency Provider Emergency Medicine; PCP Family Medicine; Visit Provider Emergency Medicine
DX: T78.3XXA Angioneurotic edema, initial encounter (principal); X58.XXXA Exposure to other specified factors, initial encounter
CPT/HCPCS: 99283

== ENCOUNTER 2024-11-19 12:10 | Emergency (ER) | payer OTHER, SELFPAY ==
[2024-11-19 12:11] VITALS: BP 124/85; PULSE 52; RESP 16; TEMP 36.3; O2SAT 97; BMI 25.8
--- NOTE | 2024-11-19 14:04 | EKG12_ITS ---
Test Reason : Blood Pressure : */* mmHG Vent. Rate : 49 BPM Atrial Rate : 49 BPM P-R Int : 176 ms QRS Dur : 90 ms QT Int : 440 ms P-R-T Axes : 42 51 43 degrees QTcB Int : 397 ms Sinus bradycardia Early repolarization Otherwise normal ECG Confirmed by KAL DEAL, LESLY ([id number]), editor managing director ADEN MASTERS ([id number]) on 11/24/2024 10:58:04 AM Referred By: ALECIA Confirmed By: LESLY BOWDEN MD
--- NOTE | 2024-11-19 14:05 | EX.ED.DYSGE1 ---
HPI History of Present Illness Chief Complaint: Dizziness Narrative Narrative: 59-year-old male past medical history of hypertension presents with dizziness and vertigo that has had since yesterday evening at around 9:30 PM. This was approximately 17 hours ago. He states he was in the shower and became very vertiginous like the room was spinning. He was nauseated but did not vomit. He denies any chest pain or shortness of breath. No exacerbating or alleviating factors but he states when he lies still it somewhat improves. He states that he had been seen a few weeks ago for headaches, and had outpatient imaging which did not show anything acute like a mass or any bleeding. He presents with continued dizziness which is somewhat worsened by standing. No recent vomiting or diarrhea. [facility] Medical History Hypertension Home Medications ?Medication ?Instructions ?Recorded ?Last Taken ?Type escitalopram oxalate 10 mg tablet 10 mg PO DAILY 04/17/22 09/12/22 History lisinopril 10 mg tablet 10 mg PO DAILY 04/17/22 09/12/22 History pantoprazole 40 mg tablet,delayed 40 mg PO DAILY 04/17/22 09/12/22 History release amoxicillin 500 mg tablet 500 mg PO BID #10 tabs 10/03/22 Unknown Rx amoxicillin 875 mg-potassium 1 tab PO Q12H #14 tabs 12/20/22 Unknown Rx clavulanate 125 mg tablet guaifenesin 600 mg tablet, 600 mg PO BID PRN congestion #14 12/20/22 Unknown Rx extended release 12 hr tabs amlodipine 5 mg tablet (Norvasc) 5 mg PO DAILY #30 tabs 12/24/22 Unknown Rx doxycycline hyclate 100 mg capsule 100 mg PO BID #14 caps 12/24/22 Unknown Rx prednisone 20 mg tablet 40 mg (2 x 20 mg) PO DAILY #8 tabs 12/24/22 Unknown Rx meclizine 25 mg tablet 25 mg PO 4X/DAY PRN PRN Dizziness 11/19/24 Unknown Rx #20 tabs Allergy/AdvReac Type Severity Reaction Status Date / Time amoxicillin (From Augmentin) Allergy Swelling Verified 11/19/24 13:37 clavulanic acid (From Allergy Swelling Verified 11/19/24 13:37 Augmentin) Surgical History H/O hernia repair Social History Smoking Status: Never smoker ROS ROS ED ROS Narrative Review of systems positive for dizziness and nausea. History of headaches. Denies any fevers or chills, no cough, no chest pain or shortness of breath, no leg swelling or other symptoms. EXAM Physical Exam Narrative Exam Narrative: Afebrile. Vital signs noted. Nontoxic-appearing. NIH stroke scale is 0. Cardiovascular examination reveals mild bradycardia. Lungs are clear to auscultation bilaterally. Abdomen is soft nontender without guarding or rebound. Neurological examination is nonfocal and nonlateralizing. Normal [id number]. Const Vital Signs: 11/19/24 12:11 11/19/24 14:11 11/19/24 14:28 Temperature 97.3 F L Temperature Source Temporal Pulse Rate 52 L Pulse Rate [Lying] 48 L Pulse Rate [Sitting (for 1 minute prior to obtaining)] 52 L Respiratory Rate 16 Blood Pressure 124/85 H 128/77 H Blood Pressure [Lying] 141/91 H Blood Pressure [Sitting (for 1 minute prior to obtaining)] 147/82 H Blood Pressure Mean 98 94 Blood Pressure Mean [Lying] 107 Blood Pressure Mean [Sitting (for 1 minute prior to obtaining)] 103 Pulse Ox 97 Oxygen Delivery Method Room Air 11/19/24 16:00 Temperature Temperature Source Pulse Rate 52 L Pulse Rate [Lying] Pulse Rate [Sitting (for 1 minute prior to obtaining)] Respiratory Rate 12 Blood Pressure 144/86 H Blood Pressure [Lying] Blood Pressure [Sitting (for 1 minute prior to obtaining)] Blood Pressure Mean 105 Blood Pressure Mean [Lying] Blood Pressure Mean [Sitting (for 1 minute prior to obtaining)] Pulse Ox Oxygen Delivery Method MDM MDM MDM Narrative Medical decision making narrative: Differential diagnosis includes but not limited to positional vertigo versus dehydration versus other electrolyte imbalance versus posterior stroke. I have low suspicion for stroke or subarachnoid hemorrhage as his symptoms have been ongoing for 17 hours and mildly improving. I do not feel stroke team is indicated and he is outside the window for TNK and he does not have a debilitating deficit. Orthostatics were obtained, but he could not stand for them. This was before administration of meclizine. EKG was obtained and interpreted by myself independently as sinus bradycardia at [address] changes. No STEMI. He does show signs of early repolarization which I think is nonspecific. In review of his laboratory work he has neutropenia at 4.0 where he is the normal or even has had leukocytosis in the past. Hemoglobin 15.5, hematocrit 46.0, platelet count normal at 217. Electrolyte panel shows BUN of 23 and creatinine 0.89. LFTs are grossly unremarkable. I reviewed the radiology report of the CT of the brain and while there is no evidence of an acute hemorrhage, and comments on abnormality of the posterior superior aspect of the skull which could be Paget's disease versus metastatic deposit. However, I do not think this is the cause of the patient's dizziness. He was administered meclizine. He will be ambulated. According to RN, patient was able to ambulate without difficulty. Repeat examination shows him improved. At this point in time, I feel he can be discharged to follow-up with his primary care provider. Regarding his neutropenia and the abnormal skull lesions, he was told to follow-up with his primary care provider and he may need referral to hematology oncology. Return instructions to the emergency department were reviewed. He was written for 20 tablets of meclizine for the next 5 days. I do not feel he requires observation at this time as he has improved. Disposition is discharged home in stable condition. History & Record Review Discussion w/independent historian: Patient Lab Data Attestation: I reviewed the patient's lab results. Labs: Laboratory Results - last 24 hr 11/19/24 14:15 WBC 4.0 L RBC 5.11 Hgb 15.5 Hct 46.0 MCV 90.0 MCH 30.3 MCHC 33.7 RDW Std Deviation 42.5 RDW Coeff of Markel 13.0 Plt Count 217 MPV 9.7 Immature Gran % (Auto) 0.500 Neut % (Auto) 69.9 Lymph % (Auto) 17.8 L Metcalfe % (Auto) 7.5 Eos % (Auto) 3.8 Baso % (Auto) 0.5 Absolute Neuts (auto) 2.8 Absolute Lymphs (auto) 0.71 L Nucleated RBC % 0 Sodium 137 Potassium 4.5 Chloride 102 Carbon Dioxide 24.7 Anion Gap 10 BUN 23 H Creatinine 0.89 Estim Creat Clear Calc 90.00 Est GFR (MDRD) Non-Af 98 BUN/Creatinine Ratio 25.9 H Glucose 99 Calcium 9.2 Total Bilirubin 0.32 AST 36 ALT 18 Alkaline Phosphatase 72 Total Protein 7.4 Albumin 4.3 Globulin 3.2 Albumin/Globulin Ratio 1.3 Radiography Diagnostic Testing: Clinical Impression(s) from Imaging Studies Brain CT 11/19/24 14:43 IMPRESSION: No intracranial abnormality is seen. Abnormal appearance of the posterior superior aspect of the skull as described. This may represent either patch disease or possible metastatic deposit. Clinical correlation recommended. Reading Location: [place] [id number] Discharge Plan Triage Chief Complaint: Dizziness ED Provider: Veto Corona Dx/Rx/DC Orders Clinical Impression: Vertigo, Neutropenia, Abnormal CT scan of head Instructions: Neutropenia, ED Vertigo, Unspecified Prescriptions: New meclizine 25 mg tablet 25 mg PO 4X/DAY PRN PRN (Reason: Dizziness) Qty: 20 0RF No Action amoxicillin 500 mg tablet 500 mg PO BID Qty: 10 0RF amoxicillin-pot clavulanate 875-125 mg tablet 1 tab PO Q12H Qty: 14 0RF guaifenesin 600 mg tablet extended release 12hr 600 mg PO BID PRN (Reason: congestion) Qty: 14 0RF pantoprazole 40 mg tablet,delayed release (DR/EC) 40 mg PO DAILY Patient Comments: TAKE 1 TABLET BY MOUTH ONCE DAILY IN THE MORNING lisinopril 10 mg tablet 10 mg PO DAILY Patient Comments: TAKE 1 TABLET BY MOUTH ONCE DAILY escitalopram oxalate 10 mg tablet 10 mg PO DAILY Patient Comments: TAKE 1 TABLET BY MOUTH ONCE DAILY prednisone 20 mg tablet 40 mg PO DAILY Qty: 8 0RF amlodipine [Norvasc] 5 mg tablet 5 mg PO DAILY Qty: 30 0RF doxycycline hyclate 100 mg capsule 100 mg PO BID Qty: 14 0RF Primary Care Provider: Michael Alford Referrals: Michael Alford DO [Primary Care Provider] - 3-5 Days if not improving Activity Restrictions/Additional Instructions: You have an abnormal CT of your brain. It was regarding your skull. Follow-up with your primary care provider for further evaluation and treatment. You may need referral to hematology/oncology. Additionally, you had a lower white blood cell count today. He will need to have this rechecked in a few weeks. Take medication as directed for dizziness/vertigo. Return with increased dizziness, vomiting, new or worsening symptoms. Print Language: Slovenian Disposition Disposition: Home, Self Care
[2024-11-19 14:11] VITALS: BP 128/77
[2024-11-19 14:22] LABS: Absolute Lymphocyte Count 0.71 X10^3/uL (0.83-4.51); Absolute Neutrophil Count 2.8 X10^3/uL (2.0-7.7); Basophil# 0.02 X10^3/uL; Basophil% 0.5 % (0-1); Eosinophil# 0.15 X10^3/uL; Eosinophils% 3.8 % (0-5); Hemoglobin 15.5 g/dL (13.0-16.5); Lymphocyte # 0.71 X10^3/ul (0.83-4.51); Lymphocyte % 17.8 % (19-41); Mean Corp Hgb Conc 33.7 g/dL (32-36); Mean Corpuscular Hgb 30.3 pg (27.0-32.0); Mean Platelet Vol. 9.7 fl (6.2-12.0); Monocyte% 7.5 % (0-10); NRBC Flagged by Analyzer 0 % (0-5); Neutrophil % 69.9 % (47-70); Platelet Count 217 K/mm3 (150-450); RBC Distribution Width SD 42.5 fl (35.1-43.9); Red Blood Count 5.11 M/mm3 (4.6-6.2)
[2024-11-19 14:28] VITALS: BP 141/91; BP 147/82; PULSE 48; PULSE 52
[2024-11-19] MEDS: 0.9% Normal Saline (1000mL) 1,000 ML 1000 ML IV (14:33)
--- NOTE | 2024-11-19 14:43 | CT_ITS ---
EXAM: BRAIN/HEAD WITHOUT CONTRAST CLINICAL HISTORY: DIZZINESS, VERTIGO COMPARISON: None TECHNIQUE: Multiple axial tomographic images were obtained without intravenous contrast administration. Coronal and sagittal reconstruction was obtained as well. FINDINGS: No intracranial abnormality is seen. Abnormal appearance of the posterior superior aspect of the skull. This may represent possible Paget's disease. A neoplastic process can not be excluded. Clinical correlation recommended. CT/Brain/Head without Contrast IMPRESSION: No intracranial abnormality is seen. Abnormal appearance of the posterior superior aspect of the skull as described. This may represent either patch disease or possible metastatic deposit. Clinical correlation recommended. Reading Location: [facility]
[2024-11-19 14:46] LABS: ALB/GLOB Ratio 1.3 RATIO (0.9-2.4); AST(SGOT) 36 U/L (<=37); Alanine Aminotransfer ALT/SGPT 18 U/L (<=46); Albumin, Serum 4.3 g/dL (3.4-4.8); Alkaline Phosphatase 72 U/L (40-129); Anion Gap 10 (5-15); BUN 23 mg/dL (4-19); BUN/Creat Ratio 25.9 RATIO (10-20); Calcium,Total 9.2 mg/dL (7.6-11.0); Carbon Dioxide 24.7 mmol/L (21.0-32.0); Chloride 102 mmol/L (98-108); Creatinine, Serum 0.89 mg/dL (0.70-1.20); EST Glomerular Filtration Rate 98 (>60); Globulin 3.2 g/dL (2.2-4.2); Glucose 99 mg/dL (70-99); Potassium 4.5 mmol/L (3.3-5.1); Protein, Total 7.4 g/dL (5.9-8.4); Sodium Level 137 mmol/L (133-145); Total Bilirubin 0.32 mg/dL (0.00-1.30)
[2024-11-19] MEDS: Meclizine HCl 25 MG Tablet PO (15:04)
[2024-11-19 16:00] VITALS: BP 144/86; PULSE 52; RESP 12
[2024-11-19 17:00] VITALS: BP 127/81; PULSE 59; RESP 16; TEMP 36.6; O2SAT 100
== END 2024-11-19 17:01 | disposition home or self-care (01) ==
PROVIDERS: Emergency Provider Emergency Medicine; PCP Family Medicine; Visit Provider Emergency Medicine
DX: R42 Dizziness and giddiness (principal); R93.0 Abnormal findings on diagnostic imaging of skull and head, not elsewhere classified; D70.9 Neutropenia, unspecified; I10 Essential (primary) hypertension; Z79.899 Other long term (current) drug therapy
CPT/HCPCS: 70450; 80053; 85025; 93005; 96360; 99285; A4216